=== PATIENT | male | born 1995 | race Caucasian/White ===

== ENCOUNTER 2020-01-11 23:33 | Emergency (ER) | payer SELFPAY ==
[2020-01-12] MEDS ORDERED: HYDROCODONE/ACETAMINOPHEN 5-325 MG TABLET PO ONE (01:36)
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
[2020-01-12] MEDS ORDERED: OXYCODONE-ACETAMINOPHEN 5-325 MG TABLET PO ONE (03:58)
[2020-01-12] MEDS ORDERED: KETOROLAC TROMETHAMINE 60 MG/2 ML SDV IM ONE (03:58)
[2020-01-12] MEDS ORDERED: MORPHINE SULFATE 10 MG/ML INJ IM ONE (03:58)
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
[2020-01-12] MEDS ORDERED: HYDROMORPHONE HCL INJ/PF 2 MG/ML AMPULE IM ONE (08:37)
[2020-01-12 10:31] VITALS: BP 111/68
== END 2020-01-12 10:36 | disposition home or self-care (01) ==
LOC: ER 23:33
DX: S02.609A Fracture of mandible, unspecified, initial encounter for closed fracture (principal); W50.0XXA Accidental hit or strike by another person, initial encounter; F17.200 Nicotine dependence, unspecified, uncomplicated; K02.9 Dental caries, unspecified; K08.89 Other specified disorders of teeth and supporting structures; Z20.828 Contact with and (suspected) exposure to other viral communicable diseases
CPT/HCPCS: 99285; 96372; 87635; 70486; J1885; J2270; J1170; C9803